=== PATIENT | male | born 1965 | race Two or more races ===

== ENCOUNTER 2022-06-13 21:20 | Emergency (ER) | payer SELFPAY ==
[~2022-06-13] VITALS: Ht 172.7 cm; Wt 117.9 kg
--- NOTE | 2022-06-13 21:27 | NUR ---
Dr. Mace examining patient.
--- NOTE | 2022-06-13 21:28 | NUR ---
PT HECTOR BLS. TAKEN TO BED 5
[2022-06-13 21:32] VITALS: BP 125/86
[2022-06-13 21:57] LABS: BASOPHILS % (AUTO) 0.9 % (0.0-2.0); EOSINOPHILS # (AUTO) 0.1 K/uL (0-0.4); EOSINOPHILS % (AUTO) 2.5 % (0.0-4.0); HEMATOCRIT 39.2 % (36-52); HEMOGLOBIN 12.9 g/dL (12.0-18.0); LYMPHOCYTES % (AUTO) 42.3 % (20.5-51.1); MEAN CORPUSCULAR HEMOGLOBIN 27 pg (27-31); MEAN CORPUSCULAR HGB CONC 33 g/dL (33-37); MEAN CORPUSCULAR VOLUME 82.2 fL (80-94); MONOCYTES # (AUTO) 0.7 K/uL (0.8-1.0); NEUTROPHILS # (AUTO) 1.9 K/uL (1.8-7.7); NEUTROPHILS % (AUTO) 40.3 % (42.2-75.2); PLATELET COUNT (AUTO) 221 K/uL (140-450); RED BLOOD CELL COUNT(AUTO) 4.77 MIL/uL (4.20-6.10); RED CELL DISTRIBUTION WIDTH 16.3 % (11.6-13.7); WHITE BLOOD COUNT (AUTO) 4.7 K/uL (4.8-10.8)
[2022-06-13 22:44] LABS: ALBUMIN 3.5 g/dL (3.4-5.0); ASPARTATE AMINOTRANSFERASE 17 U/L (15-37); CARBON DIOXIDE 23.4 mmol/L (21-32); CHLORIDE 102 mmol/L (98-107); CREATININE 1.2 mg/dL (0.6-1.3); GFR ARICAN-AMERICAN 80 mL/min (>90); GLUCOSE 122 mg/dL (74-106); POTASSIUM 3.4 mmol/L (3.5-5.1); SODIUM SERUM 136 mmol/L (136-145); TOTAL BILIRUBIN 0.2 mg/dL (0.0-1.0); UREA NITROGEN, BLOOD 18 mg/dL (7-18)
[2022-06-13] MEDS ORDERED: ENOXAPARIN 100 MG/ML SYR SUBQ ONE (23:10)
[2022-06-13] MEDS ORDERED: ASPIRIN 325 MG TAB PO ONE (23:45)
--- NOTE | 2022-06-14 00:03 | NUR ---
COVID SWAB HAS BEEN SENT
--- NOTE | 2022-06-14 00:37 | NUR ---
PT IS PENDING ADMISSION FOR TELE. WILL BE A HOLD . PT IS AWARE OF ADMISSION.
--- NOTE | 2022-06-14 00:54 | NUR ---
PT IS WANTING TO LEAVE AMA.
[2022-06-14 00:58] VITALS: BP 100/71
--- NOTE | 2022-06-14 00:58 | NUR ---
Patient does not wish to proceed with medical care recommended by VANI GUARDADO. Patient given information related to possible complications, up to and including , which could occur as a result of leaving hospital at this time. Patient verbalizes understanding of risks involved leaving against medical advice. Patient has signed AMA form.
== END 2022-06-14 00:58 | disposition left against medical advice (07) ==
LOC: MED 21:20
DX: R20.0 Anesthesia of skin (principal); Z20.822 Contact with and (suspected) exposure to COVID-19; R77.8 Other specified abnormalities of plasma proteins; I63.9 Cerebral infarction, unspecified; Z98.890 Other specified postprocedural states
CPT/HCPCS: 36415; 70450; 80053; 84484; 85025; 87426; 93005; 96372; 99285; J1650